=== PATIENT | female | born 1965 | race African-American/Black ===

== ENCOUNTER 2017-01-27 10:07 | Emergency (ER) | payer BC ==
[~2017-01-27 10:07] MED LIST: ADVIL PO; DEXILANT PO; GLUCPH PO; PROAIR HFA INH
== END 2017-01-29 09:52 | disposition home or self-care (01) ==
LOC: ER 10:07
DX: I10 Essential (primary) hypertension (principal); E11.9 Type 2 diabetes mellitus without complications; J45.909 Unspecified asthma, uncomplicated; T78.40XA Allergy, unspecified, initial encounter; F17.200 Nicotine dependence, unspecified, uncomplicated; Z88.0 Allergy status to penicillin; Z91.040 Latex allergy status; Z91.013 Allergy to seafood; Z79.899 Other long term (current) drug therapy
CPT/HCPCS: 99283; J1200; J2930